=== PATIENT | male | born 1980 | race Caucasian/White ===

== ENCOUNTER 2020-08-07 06:14 | Emergency (ER) | payer SELFPAY ==
[~2020-08-07] VITALS: Ht 165.1 cm; Wt 86.2 kg
[2020-08-07 06:25] VITALS: BP 124/66
== END 2020-08-07 07:23 | disposition home or self-care (01) ==
LOC: ER 06:14
DX: U07.1 COVID-19 (principal); J12.89 Other viral pneumonia
CPT/HCPCS: 71045-TC